=== PATIENT | male | born 1985 | race Caucasian/White ===

== ENCOUNTER 2019-10-17 18:23 | Emergency (ER) | payer BC ==
--- NOTE | 2019-10-17 19:55 | EDM.PDOC ---
ED HPI GENERAL MEDICAL PROBLEM - General Chief Complaint: Gastrointestinal Problem Stated Complaint: BLOOD IN STOOLS Time Seen by Provider: 10/17/19 19:35 Source of Information: Reports: Patient, RN Notes Reviewed History Limitations: Reports: No Limitations - History of Present Illness INITIAL COMMENTS - FREE TEXT/NARRATIVE: Colton presents today with complaints of bloody stools off and on for 2 months and black tar like stools today. He reports intermittent nausea, at times. He denies complaints of pain, trauma, fever, chills, or other concerns. - Related Data Allergies Allergy/AdvReac Type Severity Reaction Status Date / Time No Known Allergies Allergy Verified 10/17/19 19:22 Home Meds: Home Meds NK [No Known Home Meds] 10/17/19 [History] Past Medical History - Past Surgical History HEENT Surgical History: Reports: Adenoidectomy, Tonsillectomy, Other (See Below) Other HEENT Surgeries/Procedures: Tympanoplasty Social & Family History - Tobacco Use Smoking Status *Q: Never Smoker - Caffeine Use Caffeine Use: Reports: None - Alcohol Use Days Per Week of Alcohol Use: 7 Number of Drinks Per Day: 6 Total Drinks Per Week: 42 - Recreational Drug Use Recreational Drug Use: No ED ROS GENERAL - Review of Systems Review Of Systems: See Below Constitutional: Reports: No Symptoms HEENT: Reports: No Symptoms Respiratory: Reports: No Symptoms Cardiovascular: Reports: No Symptoms Endocrine: Reports: No Symptoms GI/Abdominal: Reports: Black Stool, Bloody Stool, Diarrhea, Decreased Appetite, Hematochezia, Melena, Nausea. Denies: Abdominal Pain, Anorexia, Constipation, Distension, Hematemesis, Stool Incontinence, Vomiting : Reports: No Symptoms Musculoskeletal: Reports: No Symptoms Skin: Reports: No Symptoms Neurological: Reports: No Symptoms Psychiatric: Reports: No Symptoms Hematologic/Lymphatic: Reports: No Symptoms Immunologic: Reports: No Symptoms ED EXAM, GI/ABD - Physical Exam Exam: See Below Exam Limited By: No Limitations General Appearance: Alert, WD/WN, No Apparent Distress Eyes: Bilateral: Normal Appearance, EOMI Ears: Normal External Exam, Normal Canal, Hearing Grossly Normal, Normal TMs Nose: Normal Inspection, Normal Mucosa, No Blood Throat/Mouth: Normal Inspection, Normal Lips, Normal Teeth, Normal Gums, Normal Oropharynx, Normal Voice, No Airway Compromise Head: Atraumatic, Normocephalic Neck: Normal Inspection, Supple, Non-Tender, Full Range of Motion. No: Lymphadenopathy (R), Lymphadenopathy (L) Respiratory/Chest: No Respiratory Distress, Lungs Clear, Normal Breath Sounds, No Accessory Muscle Use, Chest Non-Tender Cardiovascular: Normal Peripheral Pulses, Regular Rate, Rhythm, No Edema, No Gallop, No Murmur, No Rub GI/Abdominal Exam: Normal Bowel Sounds, Soft, Non-Tender, No Organomegaly, No Distention, No Mass Rectal (Males) Exam: Normal Exam, Normal Rectal Tone, Prostate Normal, Hemorrhoids. No: Black Stool, Bloody Stool, Fecal Impaction Back Exam: Normal Inspection, Full Range of Motion. No: CVA Tenderness (R), CVA Tenderness (L) Extremities: Normal Inspection, Normal Range of Motion, Non-Tender, No Pedal Edema, Normal Capillary Refill Neurological: Alert, Oriented, Normal Cognition, Normal Gait, Normal Reflexes, No Motor/Sensory Deficits Psychiatric: Normal Affect, Normal Mood Skin Exam: Warm, Dry, Intact, Normal Color, No Rash Lymphatic: No Adenopathy Course - Vital Signs Last Recorded V/S: Last Vital Signs Temp 36.3 C 10/17/19 19:26 Pulse 98 10/17/19 20:14 Resp 16 10/17/19 20:14 BP 143/92 H 10/17/19 20:14 Pulse Ox 98 10/17/19 20:14 - Orders/Labs/Meds Labs: Laboratory Tests 10/17/19 10/17/19 10/17/19 Range/Units 20:15 20:15 20:15 WBC 9.3 (4.5-11.0) K/uL RBC 5.07 (4.30-5.90) M/uL Hgb 15.3 H (12.0-15.0) g/dL Hct 45.0 (40.0-54.0) % MCV 89 (80-98) fL MCH 30 (27-31) pg MCHC 34 (32-36) % Plt Count 311 (150-400) K/uL Neut % (Auto) 66 (36-66) % Lymph % (Auto) 21 L (24-44) % [place] % (Auto) 9 H (2-6) % Eos % (Auto) 3 (2-4) % Baso % (Auto) 1 (0-1) % PT 11.0 (9.5-12.0) sec INR 1.02 (0.80-1.20) APTT 26.0 L (27.0-36.0) sec Sodium 139 L (140-148) mmol/L Potassium 4.0 (3.6-5.2) mmol/L Chloride 102 (100-108) mmol/L Carbon Dioxide 26 (21-32) mmol/L Anion Gap 15.0 H (5.0-14.0) mmol/L BUN 17 (7-18) mg/dL Creatinine 1.3 (0.8-1.3) mg/dL Est Cr Clr Drug Dosing 86.08 mL/min Estimated GFR (MDRD) > 60 (>60) Glucose 104 (74-106) mg/dL Calcium 9.1 (8.5-10.1) mg/dL Lab work reviewed, no acute findings. Occult stool negative - Re-Assessments/Exams Free Text/Narrative Re-Assessment/Exam: 10/17/19 20:41 No bloody stools. Departure - Departure Time of Disposition: 21:09 Disposition: Home, Self-Care 01 Condition: Good Clinical Impression: Hemorrhoid, Contact dermatitis - Discharge Information *PRESCRIPTION DRUG MONITORING PROGRAM REVIEWED*: Not Applicable *COPY OF PRESCRIPTION DRUG MONITORING REPORT IN PATIENT ABEBA: Not Applicable Instructions: Hemorrhoids, [id number], Contact Dermatitis, [id number] Referrals: PCP,None [Primary Care Provider] - Forms: ED Department Discharge Additional Instructions: Drink plenty of water to stay hydrated. Work on cessation or alcohol. Use zinc oxide ointment (desitin overnight)to rectum and buttocks for irritation as needed. Preparation H to rectum three times a day as needed. Hydrocortisone suppository twice per day for 14 days to help shrink hemorrhoids. Follow up with primary as needed. Return for any worsening, issues or concerns. Sepsis Event Note - Evaluation Sepsis Screening Result: No Definite Risk - Focused Exam Vital Signs: Vital Signs Temp Pulse Resp BP Pulse Ox 10/17/19 20:14 98 16 143/92 H 98 10/17/19 19:26 36.3 C 104 H 16 145/99 H 98 10/17/19 18:40 36.3 C 104 H 16 145/99 H 98 Date Exam was Performed: 10/17/19 Time Exam was Performed: 21:29 - Assessment/Plan Assessment:: Contact dermatitis Hemorrhoids Plan: Drink plenty of water to stay hydrated. Work on cessation or alcohol. Use zinc oxide ointment (desitin overnight)to rectum and buttocks for irritation as needed. Preparation H to rectum three times a day as needed. Hydrocortisone suppository twice per day for 14 days to help shrink hemorrhoids. Follow up with primary as needed. Return for any worsening, issues or concerns.
== END 2019-10-17 21:19 | disposition home or self-care (01) ==
LOC: JP.ED 18:23
DX: K64.9 Unspecified hemorrhoids (principal); L25.9 Unspecified contact dermatitis, unspecified cause
CPT/HCPCS: 36415; 80048; 82270; 85025; 85610; 85730; 99283